=== PATIENT | male | born 1965 | race Caucasian/White ===

== ENCOUNTER 2016-09-04 11:56 | Emergency (ER) | payer MEDICARE, OTHER ==
[~2016-09-04] VITALS: Ht 170.2 cm; Wt 81.0 kg
[~2016-09-04 11:56] MED LIST: FER325 PO; FURO20TA3 PO; LACT10SO5 PO; OMEP20CA16 PO; PROP40TA4 PO; SPIR25TA67 PO
[2016-09-04 11:58] VITALS: Ht 170.2 cm; Wt 81.0 kg
--- NOTE | 2016-09-04 12:57 | ERA ---
ER Documentation Chief Complaint Date/Time DATE: 09/04/16 TIME: 12:56 Chief Complaint COUGH X 3 WEEKS.SORE THROAT HPI The patient is a 51-year-old male, presenting with persistent dry cough for more than 3-1/2 weeks. He denies fever, chills, neck pain, chest pain, dyspnea. He was hospitalized recently due to GI bleed and had negative chest x- ray about 2-1/2 weeks ago. He denies abdominal pain, vomiting, dysuria, diarrhea. He does not smoke or drink Past medical history: Cirrhosis, GERD, hepatitis C Past surgical history: None ROS All systems reviewed and are negative except as per history of present illness. Medications Home Meds Active Scripts Dextromethorphan Hb-Promethazine Hcl (Promethazine DM Syrup) 473 Ml Syrup, 10 ML PO Q6H Y for COUGH, #4 OZ Prov:FELICITY PARIS MD 09/04/16 Azithromycin* (Zithromax*) 250 Mg Tablet, 250 MG PO .ZPACK DIRECTED, #6 TAB TAKE 500 MG (2 TABS) THE FIRST DAY THEN 250 MG (1 TAB) DAYS 2-5 Prov:FELICITY PARIS MD 09/04/16 Reported Medications Ferrous Sulfate* (Ferrous Sulfate*) 325 Mg Tabec, 325 MG PO DAILY, TAB 03/28/15 Lactulose* (Lactulose*) 10 Gm/15 Ml Solution, 10 GM PO TID, ML 09/22/14 Propranolol Hcl* (Propranolol Hcl*) 40 Mg Tablet, 40 MG PO BID, TAB 09/22/14 Furosemide* (Furosemide*) 20 Mg Tablet, 20 MG PO DAILY 09/23/13 Omeprazole* (Omeprazole*) 20 Mg Capsule.dr, 40 MG PO DAILY 09/23/13 Spironolactone* (Aldactone*) 25 Mg Tablet, 25 MG PO DAILY 03/26/12 Allergies Allergies: Coded Allergies: No Known Drug Allergies (Verified Allergy, Unknown, 09/22/14) PMhx/Soc History of Surgery: No Anesthesia Reaction: No Hx Neurological Disorder: No Hx Respiratory Disorders: No Hx Cardiac Disorders: Yes (HTN) Hx Psychiatric Problems: No Hx Miscellaneous Medical Probl: No Hx Alcohol Use: No Hx Substance Use: No Hx Tobacco Use: No Physical Exam Vitals Vital Signs Date Time Temp Pulse Resp B/P Pulse Ox O2 Delivery O2 Flow Rate FiO2 09/04/16 13:49 72 18 124/68 98 Room Air 09/04/16 11:58 97.7 89 19 120/70 98 Physical Exam Const: No acute distress. Head: Atraumatic. Eyes: Normal Conjunctiva. ENT: Normal External Ears, Nose and Mouth. Neck: Full range of motion. No meningismus. Resp: Clear to auscultation bilaterally. Cardio: Regular rate and rhythm, no murmurs. Abd: Soft, non distended, normal bowel sounds, non tender. Skin: No petechiae or rashes. Back: No midline or flank tenderness. Ext: No cyanosis, or edema. Neur: Awake and alert. No focal deficit Psych: Normal Mood and Affect. Procedures/MDM MEDICAL MAKING DECISION: The patient is a 51-year-old male, presenting with acute bronchitis. He declined his chest x-ray. Risks, benefits, alternatives were explained to the patient. Risks include but not limited to and permanent disability The differential diagnoses considered include but are not limited to asthma, COPD, pneumonia, pulmonary embolus, pleural effusion, congestive heart failure. Departure Diagnosis: Primary Impression: Bronchitis Condition: Good Comments He was discharged with Zithromax and Phenergan DM I discussed the findings with the patient. I advised the patient to follow-up with the primary physician in about 1-2 days, sooner if needed and return if any concern. FELICITY PARIS MD Sep 04, 2016 12:57
[2016-09-04] MEDS ORDERED: AZIT250T94 PO (12:58)
[2016-09-04] MEDS ORDERED: D-ME473S18 PO (12:58)
[2016-09-04 13:49] VITALS: BP 124/68; PULSE 72; RESP 18
== END 2016-09-04 13:50 | disposition home or self-care (01) ==
LOC: FTE 11:56
DX: J20.9 Acute bronchitis, unspecified (principal); I10 Essential (primary) hypertension
CPT/HCPCS: 99284

== ENCOUNTER 2016-12-27 06:59 | Day surgery (SDC) | payer MEDICARE, OTHER ==
[~2016-12-27] VITALS: Ht 167.6 cm; Wt 85.2 kg
[~2016-12-27 06:59] MED LIST changes: +AZIT250T94 PO; +D-ME473S18 PO
[2016-12-27] MEDS ORDERED: LACT10SO5 PO (07:40)
[2016-12-27] MEDS ORDERED: SPIR100T31 PO (07:40)
[2016-12-27] MEDS ORDERED: PANT40TA4 PO (07:40)
[2016-12-27] MEDS ORDERED: PROP80CA3 PO (07:40)
[2016-12-27] MEDS ORDERED: FURO80TA3 PO (07:40)
[2016-12-27] MEDS ORDERED: CHOL100062 PO (07:40)
[2016-12-27 07:46] VITALS: Ht 167.6 cm; Wt 85.2 kg
[2016-12-27] MEDS ORDERED: MIDAZOLAM 1 MG/ML 2 ML INJ ONE (07:53)
[2016-12-27] MEDS ORDERED: PROPOFOL 20 ML ONE (07:53)
[2016-12-27] MEDS ORDERED: FENTAnyl 50 MCG/ML VIAL ONE (07:53)
--- NOTE | 2016-12-27 08:33 | OPPN ---
Date/Time of Note Date/Time of Note DATE: 12/27/16 TIME: 08:26 Proc Note GI Procedure date: Dec 27, 2016 Pre-procedure Diagnosis History of anemia GI bleeding history of esophageal varices \Procedure is performed to do the esophageal variceal banding rule out other causes of GI bleeding Post-procedure Diagnosis Esophageal varices grade 3 Portal hypertensive gastropathy Operation Performed EGD and esophageal variceal banding Surgeon: TRISTON LUNDY MD Anesthesiologist: DWIGHT OLIVAREZ MD Estimated blood loss: none Transfusion Required: no Specimens None Grafts/Implants: none Complications: no Complications None Pt Condition post procedure: stable Indications Esophageal varices causing bleeding needs to be banded Operative\Procedure Findings After the informed written consent is obtained patient was ostial in the left lateral side. Intravenous anesthesia was given by anesthesiology Dr. stanley When the patient become somnolent Olympus video upper endoscope was introduced into the oropharynx then into the esophagus Grade 3 esophageal varices were found Scope with the stem was advanced into the stomach into stomach showed evidence of diffuse areas of erythema and friability this is consistent with a portal hypertensive gastropathy Duodenum showed normal mucosal pattern Biopsy was obtained from the antrum to rule out H. pylori infection scope was withdrawn Esophageal variceal banding device made with a [place] was attached to the scope and scope was introduced into the esophagus 3 different varices were selected and bands were deployed over this varices No bleeding noted Scope was withdrawn and the procedure was terminated And recommend continue propranolol perhaps repeat the procedure in 3 months cc [address] Conte Dr, MD Dec 27, 2016 08:33
[2016-12-27 08:52] VITALS: BP 122/78; RESP 14
== END 2016-12-27 12:14 | disposition home or self-care (01) ==
LOC: GIL 06:59
PROVIDERS: ATTEND Internal Medicine Gastroenterology
DX: K29.50 Unspecified chronic gastritis without bleeding (principal); I85.00 Esophageal varices without bleeding; K76.6 Portal hypertension; K31.89 Other diseases of stomach and duodenum
CPT/HCPCS: 43239; 88305; 88312; J2250; J3010

== ENCOUNTER 2017-06-13 06:27 | Day surgery (SDC) | END 2017-06-13 10:57 | disposition home or self-care (01) ==

== ENCOUNTER 2018-03-02 08:00 | Day surgery (SDC) | END 2018-03-02 10:25 | disposition home or self-care (01) ==

== ENCOUNTER 2019-01-25 05:56 | Day surgery (SDC) | payer MEDICARE, OTHER ==
[~2019-01-25] VITALS: Ht 167.6 cm; Wt 85.7 kg
[~2019-01-25 05:56] MED LIST changes: -AZIT250T94 PO; -D-ME473S18 PO; -FER325 PO; -FURO20TA3 PO; +FURO80TA3 PO; -LACT10SO5 PO; +LACTULOSE; -OMEP20CA16 PO; +PANT40TA4 PO; -PROP40TA4 PO; +PROP80CA3 PO; +SPIR100T4 PO; -SPIR25TA67 PO; +VITAMIN D
[2019-01-25 07:10] VITALS: BP 124/73; PULSE 64; RESP 17; Ht 167.6 cm; Wt 85.7 kg
[2019-01-25] MEDS ORDERED: GLYCOPYRROLATE 0.4 MG INJ ONE (07:14)
[2019-01-25] MEDS ORDERED: LIDOCAINE 100 MG SYRINGE ONE (07:40)
[2019-01-25] MEDS ORDERED: PROPOFOL 40 ML ONE (07:40)
[2019-01-25 08:40] VITALS: BP 128/76; PULSE 68; RESP 18
== END 2019-01-25 16:37 | disposition home or self-care (01) ==
LOC: GIL 05:56 → SDS 05:56 → GIL 16:37
PROVIDERS: ATTEND Internal Medicine Gastroenterology
DX: I85.00 Esophageal varices without bleeding (principal); K29.70 Gastritis, unspecified, without bleeding
CPT/HCPCS: 43244; 88305; 88312; J2001